=== PATIENT | male | born 1995 | race Caucasian/White ===

== ENCOUNTER → 2020-06-19 14:15 | Outpatient (CLI) | payer MEDICAID, SELFPAY ==
--- NOTE | 2020-06-19 14:17 | CT_ITS ---
STUDY: CT RIGHT ANKLE WITHOUT CONTRAST REASON FOR EXAM: Male, 24 years old. Nondisplaced fractures of the lateral and medial malleoli. RADIATION DOSAGE (If Supplied By Facility): CTDIvol = ( 15.35 ) mGy, DLP = ( 554.55 ) mGycm TECHNIQUE: Thin section transaxial imaging of the ankle was obtained, with sagittal and coronal reconstructed images. Individualized dose optimization techniques were used for this CT. COMPARISON: Right ankle, 05/08/2012. FINDINGS: There is a comminuted nondisplaced fracture of the medial malleolus. This extends along the posterior aspect of the tibia about the midline. There is a second small fracture off of the posterior lateral aspect of the tibia although this appears well corticated and thought to be remote. There is a metallic plate and screws along the lateral aspect of the distal fibular shaft and evidence of a healed fracture of the distal diaphysis. Inferiorly, there is evidence of a wire fusion of the distal tibiofibular joint. This appears unaffected by the tibial fracture. Normal tibiotalar articulation. Normal talus, calcaneus, navicular and cuboid tarsal bones. Normal subtalar, talonavicular and calcaneocuboid articulations. Normal navicular-cuneiform, cuneiform tarsal bones and intercuneiform articulations. Normal tarsometatarsal articulations and visualized metatarsi. There is minimal stranding in the soft tissues over the anteromedial ankle extending into the dorsum of the foot. CT/Extremity Lower without Contra IMPRESSION: 1. Nondisplaced fracture of the distal tibia. 2. Evidence of remote internal fixation of a fibular fracture with fusion of the distal tibiofibular joint. Electronically Signed: Nestor Castro DO at 16:04 EDT Tel [phone], Service support ,
== END ==
PROVIDERS: Referring Provider Podiatrist Foot & Ankle Surgery; Visit Provider Podiatrist Foot & Ankle Surgery
DX: S82.64XA Nondisplaced fracture of lateral malleolus of right fibula, initial encounter for closed fracture (principal); S82.54XA Nondisplaced fracture of medial malleolus of right tibia, initial encounter for closed fracture; S93.491A Sprain of other ligament of right ankle, initial encounter
CPT/HCPCS: 73700